=== PATIENT | female | born 1940 | race Caucasian/White ===

== ENCOUNTER 2017-06-04 09:15 | Emergency (ER) | payer MEDICARE, OTHER ==
[2017-06-04] MEDS ORDERED: HYDROmorphone 0.5 MG/0.5 ML Syringe IVPUSH ONE (09:29)
[2017-06-04] MEDS ORDERED: Sodium Chloride 0.9% 10 ML Syringe FLUSH PRN (09:38)
[2017-06-04] MEDS ORDERED: HYDROmorphone 1 MG/ML Syringe IVPUSH ONE (10:03)
--- NOTE | 2017-06-04 10:29 | EDM.PDOC ---
ED HPI GENERAL MEDICAL PROBLEM - General Chief Complaint: Trauma Stated Complaint: [facility] Time Seen by Provider: 06/04/17 09:35 Source of Information: Reports: Patient, EMS History Limitations: Reports: No Limitations - History of Present Illness INITIAL COMMENTS - FREE TEXT/NARRATIVE: The patient presents with right hip pain after a fall. The patient had a right hip replacement [address] Islas in [place]. She has been doing good until this morning. She was showering and shaving her legs and leaning over and she felt a pop and then she fell. She did not hit her head and she has no neck pain. She denies chest pain or abdominal pain. She has right hip pain. There is also an area where the incision has opened up and there was some bleeding. There is no bleeding now. She has good sensation and pulses distally. Onset: Sudden Duration: Minutes: Location: Reports: Lower Extremity, Right (Hip pain and incison has opened up) Quality: Reports: Sharp Severity: Severe Improves with: Reports: None Worsens with: Reports: Movement Context: Reports: Activity (She was showering and leaning over to shave her legs ) Associated Symptoms: Reports: No Other Symptoms Right Hip Pain Score (Numeric/FACES): 8 - Related Data Allergies Allergy/AdvReac Type Severity Reaction Status Date / Time azithromycin Allergy Hives Verified 06/04/17 09:24 [From Zithromax Z-Asael] clopidogrel [From Plavix] Allergy Hives Verified 06/04/17 09:24 ezetimibe [From Zetia] Allergy Hives Verified 06/04/17 09:24 hydrochlorothiazide Allergy Hives Verified 06/04/17 09:24 Iodinated Contrast- Oral and Allergy Hives Verified 06/04/17 09:24 IV Dye shellfish derived Allergy Hives Verified 06/04/17 09:24 simvastatin [From Vytorin] Allergy Hives Verified 06/04/17 09:24 Sulfa (Sulfonamide Allergy Hives Verified 06/04/17 09:24 Antibiotics) ticlopidine [From Ticlid] Allergy Hives Verified 06/04/17 09:24 contrast dye Allergy Hives Uncoded 06/04/17 09:24 salmon Allergy Hives Uncoded 06/04/17 09:24 Home Meds: Home Meds Aspirin [Ecotrin] 325 mg PO BID 06/04/17 [History] Cephalexin [Keflex] 500 mg PO Q6HR #28 cap 06/04/17 [Rx] Indapamide 2.5 mg PO DAILY 06/04/17 [History] Lisinopril [Lisinopril] 10 mg PO DAILY 06/04/17 [History] Metoprolol Tartrate 50 mg PO BID 06/04/17 [History] Nitroglycerin [Nitrostat] 0.4 mg PO ASDIRECTED PRN 06/04/17 [History] Simvastatin [Zocor] 40 mg PO BEDTIME 06/04/17 [History] Ubidecarenone [Co Q-10] 200 mg PO DAILY 06/04/17 [History] Past Medical History HEENT History: Reports: Cataract, Impaired Vision Other HEENT History: wears eyeglasses Cardiovascular History: Reports: High Cholesterol, Hypertension Genitourinary History: Reports: UTI, Recurrent 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 Social & Family History - Tobacco Use Smoking Status *Q: Never Smoker Second Hand Smoke Exposure: No - Caffeine Use Caffeine Use: Reports: Coffee - Recreational Drug Use Recreational Drug Use: No Review of Systems - Review of Systems Review Of Systems: See Below Constitutional: Reports: No Symptoms Eyes: Reports: No Symptoms Ears: Reports: No Symptoms Nose: Reports: No Symptoms Mouth/Throat: Reports: No Symptoms Respiratory: Reports: No Symptoms Cardiovascular: Reports: No Symptoms GI/Abdominal: Reports: No Symptoms Genitourinary: Reports: No Symptoms Musculoskeletal: Reports: Joint Pain (Right hip with the wound opening up) Skin: Reports: No Symptoms ED EXAM, GENERAL - Physical Exam Exam: See Below Exam Limited By: No Limitations General Appearance: Alert, No Apparent Distress Ears: Normal External Exam Nose: Normal Inspection Head: Atraumatic, Normocephalic Neck: Normal Inspection, Supple, Non-Tender, Full Range of Motion Respiratory/Chest: No Respiratory Distress, Lungs Clear, Normal Breath Sounds Cardiovascular: Regular Rate, Rhythm, No Edema, No Murmur GI/Abdominal: Soft, Non-Tender, No Organomegaly, No Mass Back Exam: Normal Inspection Extremities: Other (Right hip pain upon palpation. Her right leg is shortened but she has good sensation and pulses distally. She has a 2cm dehisense of the incision to the proximal aspect.) ED TRAUMA PROCEDURES - Laceration/Wound Repair Right Hip Lac/Wound Length In cm: 3 Appearance: Linear Distal NVT: Neuro & Vascular Intact Anesthetic Type: Other (Sedated for closed reduction) Skin Prep: Saline Exploration/Debridement/Repair: Wound Explored, In a Bloodless Field, Explored to Base Closed With: Howe (7) Tetanus Status Addressed: Yes Complications: No - Joint Reduction Site: Hip (R) Sedation: Conscious Cedation Pre-Procedure NV Status: Normal Post-Procedure NV Status: Normal Technique: Traction/Counter Traction Number of Attempts: 1 Post-Reduction Imaging: Completely Reduced Joint Reduction Complications: No EKG INTERPRETATION EKG Date: 06/04/17 Time: 10:51 Rhythm: Other (sinus bradycardia) Rate (Beats/Min): 50 [place]: Normal P-Wave: Present QRS: Normal ST-T: Normal QT: Normal Course - Vital Signs Last Recorded V/S: Last Vital Signs Temp 97.0 F 06/04/17 11:50 Pulse 52 L 06/04/17 11:50 Resp 18 06/04/17 11:50 BP 121/57 L 06/04/17 11:50 Pulse Ox 100 06/04/17 11:50 - Orders/Labs/Meds Orders: Active Orders 24 hr Category Date Time Status EKG Documentation Completion [RC] ASDIRECTED Care 06/04/17 10:48 Active Peripheral IV Care [RC] . DIRECTED Care 06/04/17 09:38 Active Hip Min 1V Rt [CR] Stat Exams 06/04/17 11:21 Taken Lactated Ringers [Ringers, Lactated] 1,000 ml Med 06/04/17 11:00 Active IV ASDIRECTED Sodium Chloride 0.9% [Saline Flush] Med 06/04/17 09:38 Active 10 ml FLUSH ASDIRECTED PRN Peripheral IV Insertion Adult [OM.PC] Routine Oth 06/04/17 09:38 Ordered EKG 12 Lead [EK] Stat Ther 06/04/17 10:48 Ordered Medication Orders Lactated Ringer's (Ringers, Lactated) 1,000 mls @ 100 mls/hr IV ASDIRECTED MADALYN Last Admin: 06/04/17 10:52 Dose: 100 mls/hr Sodium Chloride (Saline Flush) 10 ml FLUSH ASDIRECTED PRN PRN Reason: Keep Vein Open Last Admin: 06/04/17 09:25 Dose: 10 ml Meds: Medications Generic Name Dose Route Start Last Admin Trade Name Freq PRN Reason Stop Dose Admin Lactated Ringer's 1,000 mls @ 100 mls/hr 06/04/17 11:00 06/04/17 10:52 Ringers, Lactated IV 100 mls/hr ASDIRECTED MADALYN Administration Sodium Chloride 10 ml 06/04/17 09:38 06/04/17 09:25 Saline Flush FLUSH 10 ml ASDIRECTED PRN Administration Keep Vein Open Discontinued Medications Generic Name Dose Route Start Last Admin Trade Name Freq PRN Reason Stop Dose Admin Glycopyrrolate Confirm 06/04/17 11:42 Administered 06/04/17 11:43 Dose 1 mg .ROUTE .STK-MED ONE Hydromorphone HCl 0.5 mg 06/04/17 09:29 06/04/17 09:35 Dilaudid IVPUSH 06/04/17 09:30 0.5 mg ONETIME ONE Administration Hydromorphone HCl 1 mg 06/04/17 10:03 06/04/17 10:26 Dilaudid IVPUSH 06/04/17 10:04 1 mg ONETIME ONE Administration Cefazolin Sodium 2,000 mg/ 100 mls @ 100 mls/hr 06/04/17 10:37 06/04/17 11:42 Sodium Chloride IV 06/04/17 11:36 Not Given ONETIME ONE Cefazolin Sodium/Dextrose 2 gm 50 mls @ 100 mls/hr 06/04/17 10:40 06/04/17 10 :59 / Premix IV 06/04/17 11:09 100 mls/hr ONETIME ONE Administration Lactated Ringer's Confirm 06/04/17 10:52 06/04/17 11:46 Ringers, Lactated Administered 06/04/17 10:53 Not Given Dose 1,000 mls @ as directed .ROUTE .STK-MED ONE Ketamine HCl Confirm 06/04/17 10:59 Ketalar Administered 06/04/17 11:00 Dose 500 mg .ROUTE .STK-MED ONE Metoclopramide HCl 10 mg 06/04/17 10:48 06/04/17 10:54 Reglan IVPUSH 06/04/17 10:49 10 mg ONETIME ONE Administration Metoclopramide HCl Confirm 06/04/17 10:52 06/04/17 11:44 Reglan Administered 06/04/17 10:53 Not Given Dose 10 mg .ROUTE .STK-MED ONE Midazolam HCl Confirm 06/04/17 10:59 Versed 1 Mg/Ml Administered 06/04/17 11:00 Dose 2 mg .ROUTE .STK-MED ONE - Re-Assessments/Exams Free Text/Narrative Re-Assessment/Exam: 06/04/17 10:34 I ordered an IV saline lock and dilaudid 0.5mg IV for pain. Her x-ray confirmed a dislocation of her right prosthetic hip. I called Dr Corbett who is buttonhole facer for [facility] [place] and he recommended reducing her here, closing the wound with jose, giving her ancef 2 gram here and putting her on some keflex. Dr Islas is in clinic on Wednesday and he can see her. I have called the [employer]LLING M[employer]INE OPERATOR and they will come sedate the patient so I can reduce her hip. 06/04/17 10:38 06/04/17 11:17 When we moved her over to trauma room 1, her heart rate went down to the 30s. She rebounded into the 50s and I did an EKG and she had a sinus bradycardia with no acute changes. 06/04/17 11:19 Nilay our [employer] M[employer] OPERATOR sedated the patient and I reduced her dislocation without difficulty. I was able to irrigate the wound with about 100mls of sterile saline. I closed the wound with jose. I will get her a prescription for keflex. She will need to follow hip precautions. 06/04/17 12:34 We were able to get her in with Dr Islas on Wednesday at 2:20pm. Departure - Departure Time of Disposition: 13:00 Disposition: Home, Self-Care 01 Condition: Good Clinical Impression: Wound dehiscence Hip dislocation, right Qualifiers: Encounter type: initial encounter Qualified Code(s): S73.004A - Unspecified dislocation of right hip, initial encounter - Discharge Information Prescriptions: Cephalexin [Keflex] 500 mg PO Q6HR #28 cap Referrals: Dominguez Hardy MD [Primary Care Provider] - Forms: ED Department Discharge Additional Instructions: Use the hip precautions outlined by Dr Islas. Clean the wound with warm soapy water 2 times per day and apply antibiotic ointment after. Take tylenol or motrin for pain. Follow up with Dr Islas Wednesday at 2:20pm [place] time. Please return if you are worse. - My Orders Last 24 Hours: My Active Orders 06/04/17 09:38 Peripheral IV Care [RC] . DIRECTED Sodium Chloride 0.9% [Saline Flush] 10 ml FLUSH ASDIRECTED PRN Peripheral IV Insertion Adult [OM.PC] Routine 06/04/17 10:48 EKG Documentation Completion [RC] ASDIRECTED EKG 12 Lead [EK] Stat 06/04/17 11:00 Lactated Ringers [Ringers, Lactated] 1,000 ml IV ASDIRECTED 06/04/17 11:21 Hip Min 1V Rt [CR] Stat - Assessment/Plan Last 24 Hours: My Active Orders 06/04/17 09:38 Peripheral IV Care [RC] . DIRECTED Sodium Chloride 0.9% [Saline Flush] 10 ml FLUSH ASDIRECTED PRN Peripheral IV Insertion Adult [OM.PC] Routine 06/04/17 10:48 EKG Documentation Completion [RC] ASDIRECTED EKG 12 Lead [EK] Stat 06/04/17 11:00 Lactated Ringers [Ringers, Lactated] 1,000 ml IV ASDIRECTED 06/04/17 11:21 Hip Min 1V Rt [CR] Stat
--- NOTE | 2017-06-04 10:32 | CR ---
Right hip and pelvis: AP view of the pelvis was obtained as well as AP and lateral views of the right hip. Comparison: No prior pelvis or hip exam. Right hip prosthesis is seen. Dislocation is seen of the prosthesis with the femoral component being dislocated superiorly in relation to the acetabular cup. Bony structures are osteopenic. No acute bony abnormality is noted. Degenerative change is noted within the right sacroiliac joint. Vascular calcification is seen. Impression: 1. 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 2. Other findings which are felt to be incidental as described above. Diagnostic code #3
[2017-06-04] MEDS ORDERED: ceFAZolin 2 GM in Premix Bag 1 BAG IV ONE (10:40)
--- NOTE | 2017-06-04 10:42 | PCM.PREANE ---
Preanesthetic Assessment - Procedure Proposed Procedure: Closed reduction right hip - Anesthesia/Transfusion/Family Hx Anesthesia History: Prior Anesthesia Without Reaction Family History of Anesthesia Reaction: No Transfusion History: No Prior Transfusion(s) - Review of Systems General: No Symptoms Pulmonary: No Symptoms Cardiovascular: Other (HTN, HLD, cardiac stents x4) Gastrointestinal: Other (Occ GERD ) Neurological: No Symptoms Other: Reports: None - Physical Assessment NPO Status Date: 06/04/17 (cereal at 0730) NPO Status Time: 07:30 O2 Sat by Pulse Oximetry: 100 Respiratory Rate: 15 Vital Signs: Last Vital Signs Temp 36.3 C 06/04/17 09:15 Pulse 66 06/04/17 09:15 Resp 15 06/04/17 09:15 BP 153/60 H 06/04/17 09:15 Pulse Ox 100 06/04/17 09:15 Height: 1.63 m Weight: 80.739 kg ASA Class: 3E Mental Status: Alert & Oriented x3 Dentition: Reports: Dentures (upper and lower ) Thyro-Mental Finger Breadths: 3 Mouth Opening Finger Breadths: 3 ROM/Head Extension: Full Lungs: Clear to Auscultation, Normal Respiratory Effort Cardiovascular: Regular Rate, Regular Rhythm, Other (heart murmer- patient is aware of this and had an echo last april and was told by 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 geophysical prospecting that the "murmer was part of aging") - Allergies Allergies/Adverse Reactions: Allergies Allergy/AdvReac Type Severity Reaction Status Date / Time azithromycin Allergy Hives Verified 06/04/17 09:24 [From Zithromax Z-Asael] clopidogrel [From Plavix] Allergy Hives Verified 06/04/17 09:24 ezetimibe [From Zetia] Allergy Hives Verified 06/04/17 09:24 hydrochlorothiazide Allergy Hives Verified 06/04/17 09:24 Iodinated Contrast- Oral and Allergy Hives Verified 06/04/17 09:24 IV Dye shellfish derived Allergy Hives Verified 06/04/17 09:24 simvastatin [From Vytorin] Allergy Hives Verified 06/04/17 09:24 Sulfa (Sulfonamide Allergy Hives Verified 06/04/17 09:24 Antibiotics) ticlopidine [From Ticlid] Allergy Hives Verified 06/04/17 09:24 contrast dye Allergy Hives Uncoded 06/04/17 09:24 salmon Allergy Hives Uncoded 06/04/17 09:24 - Blood Blood Available: No Product(s) Available: None - Anesthesia Plan Beta Ildefonso: Metoprolol Med Last Dose Date: 06/04/17 Med Last Dose Time: 08:00 - Acknowledgements Anesthesia Type Planned: MAC Pt an Appropriate Candidate for the Planned Anesthesia: Yes Alternatives and Risks of Anesthesia Discussed w Pt/Guardian: Yes Pt/Guardian Understands and Agrees with Anesthesia Plan: Yes PreAnesthesia Questionnaire HEENT History: Reports: Cataract, Impaired Vision Other HEENT History: wears eyeglasses Cardiovascular History: Reports: High Cholesterol, Hypertension Genitourinary History: Reports: UTI, Recurrent 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 - SUBSTANCE USE Smoking Status *Q: Never Smoker Second Hand Smoke Exposure: No Recreational Drug Use History: No - HOME MEDS Home Medications: Home Meds Aspirin [Ecotrin] 325 mg PO BID 06/04/17 [History] Indapamide 2.5 mg PO DAILY 06/04/17 [History] Lisinopril [Lisinopril] 10 mg PO DAILY 06/04/17 [History] Metoprolol Tartrate 50 mg PO BID 06/04/17 [History] Nitroglycerin [Nitrostat] 0.4 mg PO ASDIRECTED PRN 06/04/17 [History] Simvastatin [Zocor] 40 mg PO BEDTIME 06/04/17 [History] Ubidecarenone [Co Q-10] 200 mg PO DAILY 06/04/17 [History] - CURRENT (IN HOUSE) MEDS Current Meds: Current Medications Sodium Chloride (Saline Flush) 10 ml FLUSH ASDIRECTED PRN PRN Reason: Keep Vein Open Last Admin: 06/04/17 09:25 Dose: 10 ml Discontinued Medications Hydromorphone HCl (Dilaudid) 0.5 mg IVPUSH ONETIME ONE Stop: 06/04/17 09:30 Last Admin: 06/04/17 09:35 Dose: 0.5 mg Hydromorphone HCl (Dilaudid) 1 mg IVPUSH ONETIME ONE Stop: 06/04/17 10:04 Last Admin: 06/04/17 10:26 Dose: 1 mg
[2017-06-04] MEDS ORDERED: Metoclopramide 10 MG/2 ML SDV IVPUSH ONE (10:48)
[2017-06-04] MEDS ORDERED: Lactated Ringers 1,000 ML ONE (10:52)
[2017-06-04] MEDS ORDERED: Metoclopramide 10 MG/2 ML SDV ONE (10:52)
[2017-06-04] MEDS ORDERED: Midazolam 1 MG/ML 2 ML SDV ONE (10:59)
[2017-06-04] MEDS ORDERED: Ketamine 500 mg/10 ML MDV ONE (10:59)
[2017-06-04] MEDS ORDERED: Lactated Ringers 1,000 ML IV SCH (11:00)
[2017-06-04 13:19] VITALS: BP 113/52
--- NOTE | 2017-06-07 12:49 | CR ---
Right hip: AP view of the right hip was obtained. Comparison: Previous tudy of 06/04/17 (9:38 AM). Previous dislocation has been reduced. Right hip prosthesis appears normal in alignment. Underlying bony structures are intact. Impression: 1. Previous right hip dislocation has been reduced. Diagnostic code #1
== END 2017-06-04 13:05 | disposition home or self-care (01) ==
LOC: JD.ED 09:15 → SUPCPDRO 09:15 → JD.ED 13:05
DX: S73.004A Unspecified dislocation of right hip, initial encounter (principal); T81.33XA Disruption of traumatic injury wound repair, initial encounter; W19.XXXA Unspecified fall, initial encounter
CPT/HCPCS: 12001; 27252; 73501; 73502; 93005; 96361; 96365; 96375; 96376; 99285; J0690; J1170; J2250; J2765; J7050; J7120; 01200; 12002; 27266; 99284-25

== ENCOUNTER 2018-01-31 09:27 | Emergency (ER) | payer MEDICARE, OTHER ==
[2018-01-31 09:36] VITALS: BP 153/68
[2018-01-31] MEDS ORDERED: Nitroglycerin 2% Oint 1 GM UD Packet TOP ONE (09:49)
[2018-01-31] MEDS ORDERED: Sodium Chloride 0.9% 10 ML Syringe FLUSH PRN (09:49)
--- NOTE | 2018-01-31 11:43 | CR ---
Chest: Portable view of the chest was obtained. Comparison: Prior chest x-ray of 03/21/11. Heart size and mediastinum are normal. Lungs are clear. Bony structures are grossly intact. Impression: 1. Nothing acute is seen on portable chest x-ray. Diagnostic code #1
--- NOTE | 2018-01-31 11:58 | EDM.PDOC ---
ED HPI GENERAL MEDICAL PROBLEM - General Chief Complaint: Chest Pain Stated Complaint: CHEST PAIN Time Seen by Provider: 01/31/18 09:40 Source of Information: Reports: Patient, RN Notes Reviewed - History of Present Illness INITIAL COMMENTS - FREE TEXT/NARRATIVE: 77-year-old female awakened with a brief episode of chest pain around 3:00 this past morning, around 7 hours ago. She went back to sleep without difficulty but then after awakening 3-4 hours later, starting to do some light activity around the house she had recurrence of anterior chest discomfort. States this was an achy heaviness type of discomfort with some radiation to her left shoulder and also to the base of her neck on the left. She sat down to rest, took a nitroglycerin and the pain went away she's had no further chest discomfort. There's been no nausea vomiting or diaphoresis. She does Have history of 3 stents placed in the neighborhood of 10-12 years ago. She is not been having other recent episodes of chest discomfort. His not been ill in any other way. She is on medication for hypertension and her heart. She does not smoke. She is on aspirin 325 mg daily, is not on Plavix, states she is allergic to that. 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 Chest Pain Score (Numeric/FACES): 3 - Related Data Allergies Allergy/AdvReac Type Severity Reaction Status Date / Time azithromycin Allergy Hives Verified 01/31/18 09:30 [From Zithromax Z-Asael] clopidogrel [From Plavix] Allergy Hives Verified 01/31/18 09:30 ezetimibe [From Zetia] Allergy Hives Verified 01/31/18 09:30 hydrochlorothiazide Allergy Hives Verified 01/31/18 09:30 Iodinated Contrast- Oral and Allergy Hives Verified 01/31/18 09:30 IV Dye shellfish derived Allergy Hives Verified 01/31/18 09:30 simvastatin [From Vytorin] Allergy Hives Verified 01/31/18 09:30 Sulfa (Sulfonamide Allergy Hives Verified 01/31/18 09:30 Antibiotics) ticlopidine [From Ticlid] Allergy Hives Verified 01/31/18 09:30 contrast dye Allergy Hives Uncoded 01/31/18 09:30 salmon Allergy Hives Uncoded 01/31/18 09:30 Home Meds: Home Meds Aspirin [Ecotrin] 325 mg PO DAILY 06/04/17 [History] Indapamide 2.5 mg PO DAILY 06/04/17 [History] Lisinopril 10 mg PO BID 06/04/17 [History] Metoprolol Tartrate 50 mg PO BID 06/04/17 [History] Nitroglycerin [Nitrostat] 0.4 mg PO ASDIRECTED PRN 06/04/17 [History] Simvastatin [Zocor] 40 mg PO BEDTIME 06/04/17 [History] Ubidecarenone [Co Q-10] 200 mg PO DAILY 06/04/17 [History] Isosorbide Mononitrate [Imdur] 60 mg PO BID 01/31/18 [History] Past Medical History HEENT History: Reports: Cataract, Impaired Vision Other HEENT History: wears eyeglasses Cardiovascular History: Reports: High Cholesterol, Hypertension Genitourinary History: Reports: UTI, Recurrent 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 Social & Family History - Tobacco Use Smoking Status *Q: Never Smoker - Caffeine Use Caffeine Use: Reports: Coffee ED ROS GENERAL - Review of Systems Review Of Systems: See Below Constitutional: Denies: Fever, Chills, Diaphoresis HEENT: Denies: Sinus Problem, Throat Pain Respiratory: Denies: Shortness of Breath, Pleuritic Chest Pain, Cough Cardiovascular: Reports: Chest Pain. Denies: Lightheadedness, Palpitations GI/Abdominal: Denies: Abdominal Pain, Nausea, Vomiting Musculoskeletal: Reports: Neck Pain, Shoulder Pain. Denies: Arm Pain, Back Pain Skin: Reports: No Symptoms Neurological: Reports: No Symptoms ED EXAM, GENERAL - Physical Exam Exam: See Below General Appearance: Alert, No Apparent Distress Eye Exam: Bilateral Eye: PERRL Throat/Mouth: Normal Inspection Head: Atraumatic. No: Facial Swelling Neck: Supple, Full Range of Motion Respiratory/Chest: No Respiratory Distress, Lungs Clear, Normal Breath Sounds Cardiovascular: Regular Rate, Rhythm GI/Abdominal: Soft, Non-Tender Extremities: Normal Inspection, Normal Range of Motion. No: Pedal Edema, Leg Pain Neurological: Alert, Oriented, No Motor/Sensory Deficits Skin Exam: Warm, Dry, Normal Color EKG INTERPRETATION EKG Date: 01/31/18 Rhythm: NSR Rate (Beats/Min): 60 [place]: Normal P-Wave: Present QRS: Normal ST-T: Other (T-wave lead II slightly inverted, no ST elevation or depression) Course - Vital Signs Last Recorded V/S: Last Vital Signs Temp 97.7 F 01/31/18 09:30 Pulse 64 01/31/18 09:30 Resp 21 H 01/31/18 09:30 BP 153/68 H 01/31/18 09:30 Pulse Ox 95 01/31/18 09:30 - Orders/Labs/Meds Orders: Active Orders 24 hr Category Date Time Status EKG 12 Lead [EKG Documentation Completion] [RC] STAT Care 01/31/18 09:48 Active Peripheral IV Care [RC] . DIRECTED Care 01/31/18 09:49 Active Sodium Chloride 0.9% [Saline Flush] Med 01/31/18 09:49 Active 10 ml FLUSH ASDIRECTED PRN Peripheral IV Insertion Adult [OM.PC] Stat Oth 01/31/18 09:49 Ordered Medication Orders Sodium Chloride (Saline Flush) 10 ml FLUSH ASDIRECTED PRN PRN Reason: Keep Vein Open Last Admin: 01/31/18 10:00 Dose: 10 ml Labs: Laboratory Tests 01/31/18 01/31/18 01/31/18 Range/Units 10:07 10:07 12:57 WBC 8.88 (3.98-10.04) K/mm3 RBC 4.37 (3.98-5.22) M/mm3 Hgb 12.1 (11.2-15.7) gm/L Hct 38.3 (34.1-44.9) % MCV 87.6 (79.4-94.8) fl MCH 27.7 (25.6-32.2) pg MCHC 31.6 L (32.2-35.5) g/dl RDW Std Deviation 50.3 H (36.4-46.3) fL Plt Count 279 (182-369) K/mm3 MPV 10.5 (9.4-12.3) fl Neut % (Auto) 67.0 (34.0-71.1) % Lymph % (Auto) 23.2 (19.3-51.7) % [place] % (Auto) 7.3 (4.7-12.5) % Eos % (Auto) 1.9 (0.7-5.8) Baso % (Auto) 0.3 (0.1-1.2) % Neut # (Auto) 5.94 (1.56-6.13) K/mm3 Lymph # (Auto) 2.06 (1.18-3.74) K/mm3 [place] # (Auto) 0.65 H (0.24-0.36) K/mm3 Eos # (Auto) 0.17 (0.04-0.36) K/mm3 Baso # (Auto) 0.03 (0.01-0.08) K/mm3 Sodium 137 (136-145) mEq/L Potassium 4.6 (3.5-5.1) mEq/L Chloride 102 (98-107) mEq/L Carbon Dioxide 29 (21-32) mEq/L Anion Gap 10.6 (5-15) BUN 17 (7-18) mg/dL Creatinine 1.1 H (0.55-1.02) mg/dL Est Cr Clr Drug Dosing 38.54 mL/min Estimated GFR (MDRD) 48 (>60) mL/min BUN/Creatinine Ratio 15.5 (14-18) Glucose 117 H (83-115) mg/dL Calcium 10.6 H (8.5-10.1) mg/dL Total Bilirubin 0.4 (0.2-1.0) mg/dL AST 25 (15-37) U/L ALT 31 (14-59) U/L Alkaline Phosphatase 172 H (46-116) U/L Troponin I < 0.017 < 0.017 (0.00-0.056) ng/mL Total Protein 7.4 (6.4-8.2) g/dl Albumin 3.5 (3.4-5.0) g/dl Globulin 3.9 gm/dL Albumin/Globulin Ratio 0.9 L (1-2) Meds: Medications Generic Name Dose Route Start Last Admin Trade Name Dm PRN Reason Stop Dose Admin Sodium Chloride 10 ml 01/31/18 09:49 01/31/18 10:00 Saline Flush FLUSH 10 ml ASDIRECTED PRN Administration Keep Vein Open Discontinued Medications Generic Name Dose Route Start Last Admin Trade Name Dm PRN Reason Stop Dose Admin Nitroglycerin 1 gm 01/31/18 09:49 01/31/18 09:59 Nitro-Bid 2% TOP 01/31/18 09:50 1 gm ONETIME ONE Administration - Re-Assessments/Exams Free Text/Narrative Re-Assessment/Exam: 01/31/18 15:13 Initial troponins came back normal. Other labs all relatively normal, chest x- ray was good. I did do a 3 hour troponin on her as well which also came back normal. She is maintained in sinus rhythm, no ectopy. I did give the option of setting her up for cardiac stress test versus have her follow-up with her normal regular provider for consideration of further workup as appropriate. They choose to follow-up with as soon as possible, discharge instructions as documented. Departure - Departure Time of Disposition: 14:26 Disposition: Home, Self-Care 01 Condition: Fair Clinical Impression: Atypical chest pain Instructions: Nonspecific Chest Pain, [id number] Referrals: Dominguez Hardy MD [Primary Care Provider] - Forms: ED Department Discharge Additional Instructions: Rest, continue current medications, follow-up with Dr. Hardy in the next 1-3 days if possible, call tomorrow morning for next available appointment, return to ED as needed if symptoms worsening in any way as discussed. - My Orders Last 24 Hours: My Active Orders 01/31/18 09:48 EKG 12 Lead [EKG Documentation Completion] [RC] STAT 01/31/18 09:49 Peripheral IV Care [RC] . DIRECTED Sodium Chloride 0.9% [Saline Flush] 10 ml FLUSH ASDIRECTED PRN Peripheral IV Insertion Adult [OM.PC] Stat - Assessment/Plan Last 24 Hours: My Active Orders 01/31/18 09:48 EKG 12 Lead [EKG Documentation Completion] [RC] STAT 01/31/18 09:49 Peripheral IV Care [RC] . DIRECTED Sodium Chloride 0.9% [Saline Flush] 10 ml FLUSH ASDIRECTED PRN Peripheral IV Insertion Adult [OM.PC] Stat
== END 2018-01-31 14:35 | disposition home or self-care (01) ==
LOC: JD.ED 09:27
DX: R07.89 Other chest pain (principal); I10 Essential (primary) hypertension; E78.00 Pure hypercholesterolemia, unspecified; Z79.82 Long term (current) use of aspirin; Z79.899 Other long term (current) drug therapy; Z88.2 Allergy status to sulfonamides; Z91.041 Radiographic dye allergy status; Z91.018 Allergy to other foods; Z88.8 Allergy status to other drugs, medicaments and biological substances; Z88.1 Allergy status to other antibiotic agents; Z91.013 Allergy to seafood
CPT/HCPCS: 36415; 71045; 80053; 84484; 85025; 93005; 99285; A9270; J7050; 93010; 99284

== ENCOUNTER 2020-12-21 13:22 | Emergency (ER) | payer MEDICARE, BC ==
[2020-12-21] MEDS ORDERED: Sodium Chloride 0.9% 10 ML Syringe FLUSH PRN (13:39)
--- NOTE | 2020-12-21 14:11 | EDM.PDOC ---
ED HPI GENERAL MEDICAL PROBLEM - General Chief Complaint: Cardiovascular Problem Stated Complaint: chest pains Time Seen by Provider: 12/21/20 13:24 Source of Information: Reports: Patient History Limitations: Reports: No Limitations - History of Present Illness INITIAL COMMENTS - FREE TEXT/NARRATIVE: The patient presents with chest pain. She said this started about 9:30am. She has some nausea with it. The pain is also in her left shoulder. She has no shortness of breath wit it. She says it is better now. She has no fever, chills, cough, congestion, runny nose, or abdominal pain. She had a cardiac stent placed back in 2005 and she has had no trouble with her heart since. She does have hypertension and she is on metoprolol and lisinopril for that. She did take aspirin this morning. Onset: Gradual Duration: Hour(s): Location: Reports: Chest Quality: Reports: Ache Severity: Mild Improves with: Reports: None Worsens with: Reports: None Associated Symptoms: Reports: Chest Pain, Nausea/Vomiting. Denies: Cough, Fever/Chills, Headaches, Shortness of Breath Chest Pain Score (Numeric/FACES): 7 - Related Data Allergies Allergy/AdvReac Type Severity Reaction Status Date / Time azithromycin Allergy Severe Hives Verified 12/21/20 14:05 [From Zithromax Z-Asael] clopidogrel [From Plavix] Allergy Severe Hives Verified 12/21/20 14:05 ezetimibe [From Zetia] Allergy Severe Hives Verified 12/21/20 14:05 hydrochlorothiazide Allergy Severe Hives Verified 12/21/20 14:05 Iodinated Contrast Media Allergy Severe Hives Verified 12/21/20 14:05 [Iodinated Contrast- Oral and IV Dye] shellfish derived Allergy Severe Hives Verified 12/21/20 14:05 simvastatin [From Vytorin] Allergy Severe Hives Verified 12/21/20 14:05 Sulfa (Sulfonamide Allergy Severe Hives Verified 12/21/20 14:05 Antibiotics) ticlopidine [From Ticlid] Allergy Severe Hives Verified 12/21/20 14:05 contrast dye Allergy Severe Hives Uncoded 12/21/20 14:05 salmon Allergy Hives Uncoded 12/21/20 14:05 Home Meds: Home Meds Indapamide 2.5 mg PO DAILY 06/04/17 [History] Lisinopril 10 mg PO BID 06/04/17 [History] Metoprolol Tartrate 50 mg PO BID 06/04/17 [History] Nitroglycerin [Nitrostat] 0.4 mg PO ASDIRECTED PRN 06/04/17 [History] Simvastatin [Zocor] 40 mg PO BEDTIME 06/04/17 [History] Ubidecarenone [Co Q-10] 200 mg PO DAILY 06/04/17 [History] Aspirin [Halfprin] 81 mg PO DAILY 12/21/20 [History] Vit A/Vit C/Vit E/Zinc/Copper [Icaps Areds Formula] 1 tab PO DAILY 12/21/20 [History] Past Medical History HEENT History: Reports: Cataract, Impaired Vision Other HEENT History: wears eyeglasses Cardiovascular History: Reports: High Cholesterol, Hypertension Genitourinary History: Reports: UTI, Recurrent 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 Social & Family History - Tobacco Use Tobacco Use Status *Q: Never Tobacco User Second Hand Smoke Exposure: No - Caffeine Use Caffeine Use: Reports: Coffee - Recreational Drug Use Recreational Drug Use: No ED ROS GENERAL - Review of Systems Review Of Systems: See Below Constitutional: Reports: No Symptoms HEENT: Reports: No Symptoms Respiratory: Reports: No Symptoms Cardiovascular: Reports: Chest Pain Endocrine: Reports: No Symptoms GI/Abdominal: Reports: Nausea. Denies: Abdominal Pain, Vomiting ED EXAM, GENERAL - Physical Exam Exam: See Below Exam Limited By: No Limitations General Appearance: Alert, No Apparent Distress Ears: Normal External Exam Nose: Normal Inspection Head: Atraumatic, Normocephalic Neck: Normal Inspection Respiratory/Chest: No Respiratory Distress, Lungs Clear, Normal Breath Sounds Cardiovascular: Regular Rate, Rhythm, No Edema, No Murmur GI/Abdominal: Soft, Non-Tender, No Organomegaly, No Mass Extremities: Normal Inspection #1 Interpretation EKG Date: 12/21/20 Time: 13:27 Rhythm: NSR Rate (Beats/Min): 61 [place]: Normal P-Wave: Present QRS: Normal ST-T: Normal QT: Normal Course - Vital Signs Last Recorded V/S: Last Vital Signs Temp 97.5 F 12/21/20 13:31 Pulse 51 L 12/21/20 15:26 Resp 16 12/21/20 15:26 BP 147/62 H 12/21/20 15:26 Pulse Ox 95 12/21/20 15:26 - Orders/Labs/Meds Orders: Active Orders 24 hr Category Date Time Status Cardiac Monitoring [RC] . DIRECTED Care 12/21/20 13:39 Active EKG Documentation Completion [RC] STAT Care 12/21/20 13:40 Active Peripheral IV Care [RC] . DIRECTED Care 12/21/20 13:40 Active Chest 1V Frontal [CR] Stat Exams 12/21/20 13:40 Taken Sodium Chloride 0.9% [Saline Flush] Med 12/21/20 13:39 Active 10 ml FLUSH ASDIRECTED PRN Peripheral IV Insertion Adult [OM.PC] Stat Oth 12/21/20 13:39 Ordered Medication Orders Sodium Chloride (Sodium Chloride 0.9% 10 Ml Syringe) 10 ml FLUSH ASDIRECTED PRN PRN Reason: Keep Vein Open Last Admin: 12/21/20 13:48 Dose: 10 ml Documented by: BIANCA Labs: Laboratory Tests 12/21/20 12/21/20 Range/Units 13:30 13:30 WBC 13.25 H (3.98-10.04) K/mm3 RBC 4.76 (3.98-5.22) M/mm3 Hgb 13.6 D (11.2-15.7) gm/dl Hct 42.4 (34.1-44.9) % MCV 89.1 (79.4-94.8) fl MCH 28.6 (25.6-32.2) pg MCHC 32.1 L (32.2-35.5) g/dl RDW Std Deviation 48.7 H (36.4-46.3) fL Plt Count 318 (182-369) K/mm3 MPV 10.5 (9.4-12.3) fl Neut % (Auto) 68.2 (34.0-71.1) % Lymph % (Auto) 22.0 (19.3-51.7) % [place] % (Auto) 8.2 (4.7-12.5) % Eos % (Auto) 0.9 (0.7-5.8) Baso % (Auto) 0.4 (0.1-1.2) % Neut # (Auto) 9.04 H (1.56-6.13) K/mm3 Lymph # (Auto) 2.91 (1.18-3.74) K/mm3 [place] # (Auto) 1.09 H (0.24-0.36) K/mm3 Eos # (Auto) 0.12 (0.04-0.36) K/mm3 Baso # (Auto) 0.05 (0.01-0.08) K/mm3 Manual Slide Review Normal smear Sodium 139 (136-145) mEq/L Potassium 3.9 (3.5-5.1) mEq/L Chloride 100 (98-107) mEq/L Carbon Dioxide 29 (21-32) mEq/L Anion Gap 13.9 (5-15) BUN 18 (7-18) mg/dL Creatinine 1.1 H (0.55-1.02) mg/dL Est Cr Clr Drug Dosing 36.70 mL/min Estimated GFR (MDRD) 48 (>60) mL/min BUN/Creatinine Ratio 16.4 (14-18) Glucose 101 (83-115) mg/dL Calcium 9.5 (8.5-10.1) mg/dL Total Bilirubin 0.5 (0.2-1.0) mg/dL AST 23 (15-37) U/L ALT 35 (14-59) U/L Alkaline Phosphatase 181 H (46-116) U/L Troponin I < 0.017 (0.00-0.056) ng/mL Total Protein 8.2 (6.4-8.2) g/dl Albumin 4.0 (3.4-5.0) g/dl Globulin 4.2 gm/dL Albumin/Globulin Ratio 1.0 (1-2) Meds: Medications Generic Name Dose Route Start Last Admin Trade Name Freq PRN Reason Stop Dose Admin Sodium Chloride 10 ml 12/21/20 13:39 12/21/20 13:48 Sodium Chloride 0.9% 10 Ml Syringe FLUSH 10 ml ASDIRECTED PRN Administration Keep Vein Open - Re-Assessments/Exams Free Text/Narrative Re-Assessment/Exam: 12/21/20 14:11 I ordered an IV saline lock, EKG, CXR and labs. Her EKG shows a NSR with no acute changes. 12/21/20 15:51 Her CXR looks good. Her WBC was elevated at 13.25. Her creatinine is elevated at 1.1. Alk phos is elevated at 181. Her troponin is negative. She feels better. I will discharge her home. Departure - Departure Time of Disposition: 16:00 Disposition: Home, Self-Care 01 Condition: Good Clinical Impression: Atypical chest pain Referrals: Dominguez Hardy MD [Primary Care Provider] - 1 Week Forms: ED Department Discharge Additional Instructions: Take your medications as prescribed. Please return if you are worse. Follow up with Dr Hardy this week. Sepsis Event Note (ED) - Evaluation Sepsis Screening Result: No Definite Risk - Focused Exam Vital Signs: Vital Signs Temp Pulse Resp BP Pulse Ox 12/21/20 15:26 51 L 16 147/62 H 95 12/21/20 13:31 97.5 F 53 L 18 167/73 H 100 - My Orders Last 24 Hours: My Active Orders 12/21/20 13:39 Cardiac Monitoring [RC] . DIRECTED Sodium Chloride 0.9% [Saline Flush] 10 ml FLUSH ASDIRECTED PRN Peripheral IV Insertion Adult [OM.PC] Stat 12/21/20 13:40 EKG Documentation Completion [RC] STAT Peripheral IV Care [RC] . DIRECTED Chest 1V Frontal [CR] Stat - Assessment/Plan Last 24 Hours: My Active Orders 12/21/20 13:39 Cardiac Monitoring [RC] . DIRECTED Sodium Chloride 0.9% [Saline Flush] 10 ml FLUSH ASDIRECTED PRN Peripheral IV Insertion Adult [OM.PC] Stat 12/21/20 13:40 EKG Documentation Completion [RC] STAT Peripheral IV Care [RC] . DIRECTED Chest 1V Frontal [CR] Stat
[2020-12-21 15:27] VITALS: PULSE 51
[2020-12-21 16:07] VITALS: BP 165/64
--- NOTE | 2020-12-22 09:22 | CR ---
Chest: Portable view of the chest was obtained. Comparison: Prior chest x-ray of 01/31/18. Heart size and mediastinum are normal. Lungs are clear with no acute parenchymal change. No acute osseous finding is seen. Impression: 1. Nothing acute is appreciated on portable chest x-ray. Diagnostic code #1
== END 2020-12-21 16:00 | disposition home or self-care (01) ==
LOC: JD.ED 13:22
DX: R07.89 Other chest pain (principal); E78.00 Pure hypercholesterolemia, unspecified; I10 Essential (primary) hypertension; Z79.82 Long term (current) use of aspirin; Z86.16 Personal history of COVID-19; Z95.5 Presence of coronary angioplasty implant and graft; Z79.899 Other long term (current) drug therapy; Z91.041 Radiographic dye allergy status; Z88.2 Allergy status to sulfonamides; Z88.1 Allergy status to other antibiotic agents; Z88.8 Allergy status to other drugs, medicaments and biological substances; Z91.013 Allergy to seafood
CPT/HCPCS: 36415; 71045; 71045-26; 80053; 84484; 85025; 93005; 93010; 99284; 99285-25

== ENCOUNTER 2022-07-19 13:14 | Emergency (ER) | payer MEDICARE, BC ==
[2022-07-19] MEDS ORDERED: LORazepam 2 MG/ML SDV IV ONE (14:29)
[2022-07-19] MEDS ORDERED: Metoclopramide 10 MG/2 ML SDV IVPUSH ONE (14:29)
[2022-07-19] MEDS ORDERED: Dextrose 5%-Lactated Ringers 1,000 ML IV SCH (14:30)
[2022-07-19 17:16] VITALS: BP 168/63; PULSE 56
== END 2022-07-19 17:40 | disposition home or self-care (01) ==
LOC: JD.ED 13:14
DX: E87.1 Hypo-osmolality and hyponatremia (principal); E78.00 Pure hypercholesterolemia, unspecified; I10 Essential (primary) hypertension; M19.90 Unspecified osteoarthritis, unspecified site; I44.0 Atrioventricular block, first degree; Z88.8 Allergy status to other drugs, medicaments and biological substances; Z88.1 Allergy status to other antibiotic agents; Z91.041 Radiographic dye allergy status; Z91.018 Allergy to other foods; Z91.013 Allergy to seafood; Z88.2 Allergy status to sulfonamides; Z79.82 Long term (current) use of aspirin; Z79.899 Other long term (current) drug therapy
CPT/HCPCS: 36415; 80053; 81001; 82553; 83735; 83880; 83930; 84484; 85025; 86140; 93005; 96361; 96374; 96375; 99284; J2060; J2765; J7121

== ENCOUNTER 2023-01-10 11:37 | Emergency (ER) | payer MEDICARE, BC ==
[2023-01-10 11:47] VITALS: BP 170/70; PULSE 68
[2023-01-10] MEDS ORDERED: Sodium Chloride 0.9% 10 ML Syringe FLUSH PRN (12:08)
[2023-01-10] MEDS ORDERED: Sodium Chloride 0.9% 500 ML IV ONE (12:19)
[2023-01-10] MEDS ORDERED: Ondansetron 4 MG/2 ML SDV IVPUSH ONE (12:19)
[2023-01-10 13:07] LABS: BASOPHILS ABSOLUTE AUTO 0.03 K/mm3 (0.01-0.08); BASOPHILS PERCENT AUTO 0.3 % (0.1-1.2); EOSINOPHILS ABSOLUTE AUTO 0.07 K/mm3 (0.04-0.36); EOSINOPHILS PERCENT AUTO 0.7 (0.7-5.8); HEMATOCRIT 40.8 % (34.1-44.9); HEMOGLOBIN 13.6 gm/dl (11.2-15.7); IMMATURE GRAN ABSOLUTE AUTO 0.01 K/mm3 (0.00-0.10); IMMATURE GRAN PERCENT AUTO 0.1 % (<=1.0); LYMPHOCYTES ABSOLUTE AUTO 1.85 K/mm3 (1.18-3.74); LYMPHOCYTES PERCENT AUTO 17.5 % (19.3-51.7); MEAN CORPUSCULAR HEMOGLOBIN 28.4 pg (25.6-32.2); MEAN CORPUSCULAR HGB CONC 33.3 g/dl (32.2-35.5); MEAN CORPUSCULAR VOLUME 85.2 fl (79.4-94.8); MONOCYTES ABSOLUTE AUTO 0.87 K/mm3 (0.24-0.36); MONOCYTES PERCENT AUTO 8.2 % (4.7-12.5); NEUTROPHILS ABSOLUTE AUTO 7.73 K/mm3 (1.56-6.13); NEUTROPHILS PERCENT AUTO 73.2 % (34.0-71.1); PLATELET COUNT,PLT 301 K/mm3 (182-369); RED BLOOD CELL COUNT 4.79 M/mm3 (3.98-5.22); WHITE BLOOD CELL COUNT,WBC 10.56 K/mm3 (3.98-10.04)
[2023-01-10 13:28] LABS: LACTIC ACID 0.9 mmol/L (0.4-2.0)
[2023-01-10 13:29] LABS: A/G RATIO 0.8 (1-2); ALBUMIN 3.7 g/dl (3.4-5.0); ANION GAP 10.1 (5-15); BILIRUBIN TOTAL 0.8 mg/dL (0.2-1.0); BUN/CREATININE RATIO 15.6 (14-18); CREATININE 0.9 mg/dL (0.55-1.02); EST CRCL DRUG DOSING (CG) 43.37 mL/min; MAGNESIUM 1.8 mg/dL (1.8-2.4); POTASSIUM,K 4.1 mEq/L (3.5-5.1); PROTEIN TOTAL,TP 8.1 g/dl (6.4-8.2)
[2023-01-10 14:19] LABS: CORONAVIRUS COVID-19 NAA NEGATIVE (NEGATIVE); INFLUENZA A NAA NEGATIVE (NEGATIVE)
[2023-01-10 14:46] LABS: APPEARANCE,URINE CLEAR (Clear); BILIRUBIN,URINE NEGATIVE (Negative); COLOR,URINE YELLOW (Yellow); GLUCOSE,URINE NEGATIVE (Negative); KETONES,URINE TRACE (Negative); LEUKOCYTE ESTERASE,URINE 1+ (Negative); NITRITE,URINE NEGATIVE (Negative); OCCULT BLOOD,URINE NEGATIVE (Negative); PROTEIN,URINE NEGATIVE (Negative); UROBILINOGEN,URINE 0.2 (0.2-1.0)
[2023-01-10 15:00] LABS: AMORPHOUS SEDIMENT,URINE FEW /hpf (NOT SEEN); BACTERIA,URINE FEW /hpf (FEW); HYALINE CASTS,URINE 0-5 /lpf (0-5); MUCUS,URINE NOT SEEN /hpf (FEW); RBC,URINE 0-5 /hpf (0-5); SQUAMOUS EPITHELIAL CELLS,UR 0-5 /hpf (0-5); WBC,URINE 0-5 /hpf (0-5)
== END 2023-01-10 16:20 | disposition home or self-care (01) ==
LOC: JD.ED 11:37
DX: K52.9 Noninfective gastroenteritis and colitis, unspecified (principal); I10 Essential (primary) hypertension; E78.00 Pure hypercholesterolemia, unspecified; Z86.16 Personal history of COVID-19; Z88.1 Allergy status to other antibiotic agents; Z79.02 Long term (current) use of antithrombotics/antiplatelets; Z88.8 Allergy status to other drugs, medicaments and biological substances; Z88.2 Allergy status to sulfonamides; Z91.041 Radiographic dye allergy status; Z91.013 Allergy to seafood; Z79.899 Other long term (current) drug therapy; Z79.82 Long term (current) use of aspirin; Z20.822 Contact with and (suspected) exposure to COVID-19
CPT/HCPCS: 0240U; 36415; 71045; 74019; 80053; 81001; 83605; 83735; 84484; 85025; 86140; 87086; 93005; 96361; 96374; 99284; J2405; J3490; J7030; 93010

== ENCOUNTER 2023-02-06 10:06 | Emergency (ER) | payer MEDICARE, BC ==
[2023-02-06] MEDS ORDERED: Sodium Chloride 0.9% 10 ML Syringe FLUSH PRN (10:37)
[2023-02-06 11:07] LABS: BASOPHILS ABSOLUTE AUTO 0.03 K/mm3 (0.01-0.08); BASOPHILS PERCENT AUTO 0.3 % (0.1-1.2); EOSINOPHILS ABSOLUTE AUTO 0.05 K/mm3 (0.04-0.36); EOSINOPHILS PERCENT AUTO 0.5 (0.7-5.8); HEMATOCRIT 38.6 % (34.1-44.9); HEMOGLOBIN 12.6 gm/dl (11.2-15.7); IMMATURE GRAN ABSOLUTE AUTO 0.01 K/mm3 (0.00-0.10); IMMATURE GRAN PERCENT AUTO 0.1 % (<=1.0); LYMPHOCYTES ABSOLUTE AUTO 1.94 K/mm3 (1.18-3.74); LYMPHOCYTES PERCENT AUTO 17.6 % (19.3-51.7); MEAN CORPUSCULAR HEMOGLOBIN 27.9 pg (25.6-32.2); MEAN CORPUSCULAR HGB CONC 32.6 g/dl (32.2-35.5); MEAN CORPUSCULAR VOLUME 85.6 fl (79.4-94.8); MEAN PLATELET VOLUME 10.5 fl (9.4-12.3); MONOCYTES ABSOLUTE AUTO 1.24 K/mm3 (0.24-0.36); MONOCYTES PERCENT AUTO 11.2 % (4.7-12.5); NEUTROPHILS ABSOLUTE AUTO 7.76 K/mm3 (1.56-6.13); NEUTROPHILS PERCENT AUTO 70.3 % (34.0-71.1); PLATELET COUNT,PLT 332 K/mm3 (182-369); RED BLOOD CELL COUNT 4.51 M/mm3 (3.98-5.22); WHITE BLOOD CELL COUNT,WBC 11.03 K/mm3 (3.98-10.04)
[2023-02-06 11:17] LABS: INR 1.02; PROTHROMBIN TIME 10.9 SECONDS (9.7-12.0)
[2023-02-06 11:21] LABS: D-DIMER QUANTITATIVE 0.94 mg/L (0.19-0.50)
[2023-02-06 11:36] LABS: CORONAVIRUS COVID-19 NAA NEGATIVE (NEGATIVE); INFLUENZA A NAA NEGATIVE (NEGATIVE); RESPIRATORY SYNCYTIAL VIR NAA NEGATIVE (NEGATIVE)
[2023-02-06 11:38] LABS: A/G RATIO 0.9 (1-2); ALBUMIN 3.6 g/dl (3.4-5.0); ANION GAP 6.9 (5-15); BILIRUBIN TOTAL 0.8 mg/dL (0.2-1.0); BUN/CREATININE RATIO 8.2 (14-18); C-REACTIVE PROTEIN 2.9 mg/dL (<1.0); CREATININE 1.1 mg/dL (0.55-1.02); EST CRCL DRUG DOSING (CG) 35.48 mL/min; MAGNESIUM 1.9 mg/dL (1.8-2.4); POTASSIUM,K 3.9 mEq/L (3.5-5.1); PROTEIN TOTAL,TP 7.6 g/dl (6.4-8.2); TSH 0.566 uIU/mL (0.358-3.74)
[2023-02-06] MEDS ORDERED: Ondansetron 4 MG/2 ML SDV IVPUSH ONE (11:49)
[2023-02-06 12:01] LABS: APPEARANCE,URINE CLEAR (Clear); BILIRUBIN,URINE NEGATIVE (Negative); COLOR,URINE YELLOW (Yellow); GLUCOSE,URINE NEGATIVE (Negative); KETONES,URINE NEGATIVE (Negative); LEUKOCYTE ESTERASE,URINE TRACE (Negative); NITRITE,URINE NEGATIVE (Negative); OCCULT BLOOD,URINE NEGATIVE (Negative); PH,URINE 7.5 (5.0-8.0); PROTEIN,URINE NEGATIVE (Negative); UROBILINOGEN,URINE 0.2 (0.2-1.0)
[2023-02-06 12:25] LABS: BACTERIA,URINE FEW /hpf (FEW); MUCUS,URINE RARE /hpf (FEW); RBC,URINE 0-5 /hpf (0-5); SQUAMOUS EPITHELIAL CELLS,UR 0-5 /hpf (0-5); WBC,URINE 0-5 /hpf (0-5)
[2023-02-06 13:26] VITALS: BP 147/73; PULSE 62
== END 2023-02-06 13:26 | disposition home or self-care (01) ==
LOC: JD.ED 10:06
DX: K29.50 Unspecified chronic gastritis without bleeding (principal); R91.1 Solitary pulmonary nodule; R79.1 Abnormal coagulation profile; E78.00 Pure hypercholesterolemia, unspecified; I10 Essential (primary) hypertension; M19.90 Unspecified osteoarthritis, unspecified site; Z86.16 Personal history of COVID-19; Z88.8 Allergy status to other drugs, medicaments and biological substances; Z91.013 Allergy to seafood; Z91.041 Radiographic dye allergy status; Z88.2 Allergy status to sulfonamides; Z88.1 Allergy status to other antibiotic agents; Z79.82 Long term (current) use of aspirin; Z79.899 Other long term (current) drug therapy; Z20.822 Contact with and (suspected) exposure to COVID-19
CPT/HCPCS: 0241U; 36415; 71250; 74176; 80053; 81001; 82150; 82550; 83690; 83735; 83880; 84443; 84484; 85025; 85379; 85610; 85652; 85730; 86140; 87086; 93005; 96374; 99284; J2405; J3490

== ENCOUNTER 2023-06-01 14:43 | Emergency (ER) | payer MEDICARE, BC ==
[2023-06-01 15:40] LABS: BASOPHILS PERCENT AUTO 0.4 % (0.0-1.0); EOSINOPHILS ABSOLUTE AUTO 0.1 K/mm3 (0.0-0.4); EOSINOPHILS PERCENT AUTO 0.8 % (0.0-6.0); HEMOGLOBIN 12.2 gm/dl (12.0-16.0); IMMATURE GRAN ABSOLUTE AUTO 0.04 K/mm3 (0.00-0.05); IMMATURE GRAN PERCENT AUTO 0.4 % (0.0-0.4); LYMPHOCYTES ABSOLUTE AUTO 2.1 K/mm3 (1.0-4.8); LYMPHOCYTES PERCENT AUTO 20.4 % (24.0-44.0); MEAN CORPUSCULAR HEMOGLOBIN 28.2 pg (28.0-32.0); MEAN CORPUSCULAR HGB CONC 32.1 g/dl (32.0-36.0); MEAN PLATELET VOLUME 10.9 fl (9.4-12.3); MONOCYTES ABSOLUTE AUTO 0.8 K/mm3 (0.0-0.8); MONOCYTES PERCENT AUTO 8.4 % (0.0-8.0); NEUTROPHILS PERCENT AUTO 69.6 % (41.0-71.0); PLATELET COUNT,PLT 268 K/mm3 (150-400); RED BLOOD CELL COUNT 4.32 M/mm3 (4.10-5.30); WHITE BLOOD CELL COUNT,WBC 10.03 K/mm3 (3.9-11.3)
[2023-06-01] MEDS ORDERED: Metoprolol Tartrate 5 MG/5 ML SDV IVPUSH ONE (16:01)
[2023-06-01 16:19] LABS: APPEARANCE,URINE CLEAR (Clear); BILIRUBIN,URINE NEGATIVE (Negative); COLOR,URINE YELLOW (Yellow); GLUCOSE,URINE NEGATIVE (Negative); KETONES,URINE NEGATIVE (Negative); LEUKOCYTE ESTERASE,URINE TRACE (Negative); NITRITE,URINE NEGATIVE (Negative); OCCULT BLOOD,URINE 1+ (Negative); PH,URINE 6.5 (5.0-8.0); PROTEIN,URINE TRACE (Negative); UROBILINOGEN,URINE 0.2 (0.2-1.0)
[2023-06-01 16:27] LABS: A/G RATIO 0.9 (1-2); ALBUMIN 3.2 g/dl (3.4-5.0); ANION GAP 8.9 (5-15); BILIRUBIN TOTAL 0.4 mg/dL (0.2-1.0); CALCIUM 9.5 mg/dL (8.5-10.1); EST CRCL DRUG DOSING (CG) 39.03 mL/min; POTASSIUM,K 3.9 mEq/L (3.5-5.1); PROTEIN TOTAL,TP 6.8 g/dl (6.4-8.2)
[2023-06-01 16:32] LABS: BACTERIA,URINE FEW /hpf (FEW); MUCUS,URINE FEW /hpf (FEW); SQUAMOUS EPITHELIAL CELLS,UR 0-5 /hpf (0-5)
[2023-06-01] MEDS ORDERED: hydrALAZINE 20 MG/ML SDV IVPUSH ONE (16:45)
[2023-06-01] MEDS ORDERED: amLODIPine 5 MG Tab PO ONE (19:35)
[2023-06-01] MEDS ORDERED: Nitrofurantoin Monohydrate/Macrocrystalline 100 MG Cap PO ONE (19:35)
[2023-06-01 20:51] VITALS: BP 179/63
[2023-06-02 01:23] VITALS: PULSE 72
== END 2023-06-01 20:56 | disposition home or self-care (01) ==
LOC: JD.ED 14:43
DX: I10 Essential (primary) hypertension (principal); N39.0 Urinary tract infection, site not specified; E78.00 Pure hypercholesterolemia, unspecified; Z86.16 Personal history of COVID-19; Z88.1 Allergy status to other antibiotic agents; Z88.2 Allergy status to sulfonamides; Z88.5 Allergy status to narcotic agent; Z88.6 Allergy status to analgesic agent; Z88.8 Allergy status to other drugs, medicaments and biological substances; Z91.013 Allergy to seafood; Z91.041 Radiographic dye allergy status; Z79.899 Other long term (current) drug therapy
CPT/HCPCS: 36415; 80053; 81001; 84484; 85025; 87086; 93005; 96374; 99283; A9270; J0360

== ENCOUNTER 2024-11-28 15:46 | Emergency (ER) | payer BC, MEDICARE ==
[2024-11-28 17:40] VITALS: BP 147/52; PULSE 68
== END 2024-11-28 17:33 | disposition home or self-care (01) ==
LOC: JD.ED 15:46
DX: S01.511A Laceration without foreign body of lip, initial encounter (principal); I10 Essential (primary) hypertension; E78.00 Pure hypercholesterolemia, unspecified; M19.90 Unspecified osteoarthritis, unspecified site; Z88.8 Allergy status to other drugs, medicaments and biological substances; Z88.1 Allergy status to other antibiotic agents; Z91.041 Radiographic dye allergy status; Z88.2 Allergy status to sulfonamides; Z91.013 Allergy to seafood; Z79.899 Other long term (current) drug therapy; Z79.82 Long term (current) use of aspirin; Z86.16 Personal history of COVID-19; Z90.49 Acquired absence of other specified parts of digestive tract; Z90.710 Acquired absence of both cervix and uterus; W01.0XXA Fall on same level from slipping, tripping and stumbling without subsequent striking against object, initial encounter
CPT/HCPCS: 70450; 70450-26; 99282; 99283

== ENCOUNTER 2025-01-20 18:57 | Inpatient (IN) | payer MEDICARE ==
[2025-01-20] MEDS: Acetaminophen 325 MG Tab PO ONE (21:33)
[2025-01-21] MEDS: Amiodarone 200 MG Tab PO STA ×2 (00:10→05:42)
[2025-01-21] MEDS: Apixaban 5 MG Tab PO ONE ×2 (00:11→05:42)
[2025-01-21] MEDS: Sertraline 50 MG Tab PO ONE ×2 (00:11→05:43)
[2025-01-21] MEDS: amLODIPine 5 MG Tab PO ONE ×2 (00:11→05:42)
[2025-01-21] MEDS: Lisinopril 10 MG Tab PO ONE ×3 (00:27→05:43)
[2025-01-21 08:25] LABS: BASOPHILS ABSOLUTE AUTO 0.1 K/mm3 (0.0-0.2); BASOPHILS PERCENT AUTO 0.3 % (0.0-1.0); EOSINOPHILS PERCENT AUTO 0.1 % (0.0-6.0); HEMATOCRIT 23.3 % (37.0-47.0); IMMATURE GRAN ABSOLUTE AUTO 0.09 K/mm3 (0.00-0.05); IMMATURE GRAN PERCENT AUTO 0.6 % (0.0-0.4); LYMPHOCYTES ABSOLUTE AUTO 1.5 K/mm3 (1.0-4.8); LYMPHOCYTES PERCENT AUTO 9.5 % (24.0-44.0); MEAN CORPUSCULAR HEMOGLOBIN 20.7 pg (28.0-32.0); MEAN CORPUSCULAR HGB CONC 29.6 g/dl (32.0-36.0); MEAN CORPUSCULAR VOLUME 69.8 fl (83.0-99.0); MEAN PLATELET VOLUME 10.9 fl (9.4-12.3); MONOCYTES PERCENT AUTO 6.7 % (0.0-8.0); NEUTROPHILS ABSOLUTE AUTO 12.9 K/mm3 (1.8-7.7); NEUTROPHILS PERCENT AUTO 82.8 % (41.0-71.0); PLATELET COUNT,PLT 214 K/mm3 (150-400); RED BLOOD CELL COUNT 3.34 M/mm3 (4.10-5.30); WHITE BLOOD CELL COUNT,WBC 15.61 K/mm3 (3.9-11.3)
[2025-01-21 08:32] LABS: HEMOGLOBIN 6.9 gm/dl (12.0-16.0)
[2025-01-21 08:56] LABS: A/G RATIO 0.7 (1-2); ALBUMIN 2.6 g/dl (3.4-5.0); ANION GAP 11.2 (5-15); BILIRUBIN TOTAL 0.5 mg/dL (0.2-1.0); BUN/CREATININE RATIO 12.7 (14-18); CALCIUM 9.1 mg/dL (8.5-10.1); CREATININE 1.5 mg/dL (0.55-1.02); EST CRCL DRUG DOSING (CG) 24.11 mL/min; MAGNESIUM 1.8 mg/dL (1.8-2.4); POTASSIUM,K 4.2 mEq/L (3.5-5.1); PROTEIN TOTAL,TP 6.1 g/dl (6.4-8.2)
[2025-01-21 09:05] LABS: INR 1.09; PROTHROMBIN TIME 11.5 SECONDS (9.7-12.0)
[2025-01-21 09:20] LABS: SLIDE REVIEW ABNORMAL SMEAR
[2025-01-21] MEDS: oxyCODONE 5 MG Tab PO PRN (09:45)
[2025-01-21] MEDS: Pantoprazole 40 MG Tab.CR PO SCH (09:45)
[2025-01-21] MEDS: Sodium Chloride 0.9% 250 ML IV SCH (12:17)
[2025-01-21 14:08] LABS: FERRITIN 33 ng/ml (8-252); IRON,FE 15 ug/dL (50-170); PERCENT FE SATURATION 5 % (20-55); TRANSFERRIN 261 mg/dL (202-364)
[2025-01-21 14:13] LABS: TOTAL IRON BINDING CAPACITY 326 ug/dL (100-400)
[2025-01-21 15:41] LABS: APPEARANCE,URINE SLT CLOUDY (Clear); BILIRUBIN,URINE NEGATIVE (Negative); COLOR,URINE DARK YELLOW (Yellow); GLUCOSE,URINE NEGATIVE (Negative); KETONES,URINE TRACE (Negative); LEUKOCYTE ESTERASE,URINE 2+ (Negative); NITRITE,URINE NEGATIVE (Negative); OCCULT BLOOD,URINE 3+ (Negative); PROTEIN,URINE 2+ (Negative); UROBILINOGEN,URINE 0.2 (0.2-1.0)
[2025-01-21 16:02] LABS: EPITHELIAL CELLS,URINE 0-5 /hpf (0-5); RBC,URINE 20-30 /hpf (0-5); WBC,URINE >100 /hpf (0-5)
[2025-01-21 16:03] LABS: BACTERIA,URINE MANY /hpf (FEW); MUCUS,URINE FEW /hpf (FEW)
[2025-01-21 16:35] LABS: HEMATOCRIT 27.1 % (37.0-47.0); HEMOGLOBIN 8.2 gm/dl (12.0-16.0)
[2025-01-21] MEDS: cefTRIAXone 1 GM Vial IVPUSH SCH (17:01)
[2025-01-21] MEDS: Sodium Chloride 0.9% 1,000 ML IV SCH (17:02)
[2025-01-21] MEDS: Sertraline 50 MG Tab PO SCH (21:33)
[2025-01-21] MEDS: Amiodarone 200 MG Tab PO SCH (21:33)
[2025-01-21] MEDS: atorvaSTATin 20 MG Tab PO SCH (21:34)
[2025-01-22] MEDS: Acetaminophen 325 MG Tab PO PRN (05:42)
[2025-01-22 05:51] LABS: BASOPHILS PERCENT AUTO 0.2 % (0.0-1.0); EOSINOPHILS PERCENT AUTO 0.1 % (0.0-6.0); HEMATOCRIT 26.9 % (37.0-47.0); HEMOGLOBIN 8.3 gm/dl (12.0-16.0); IMMATURE GRAN ABSOLUTE AUTO 0.13 K/mm3 (0.00-0.05); IMMATURE GRAN PERCENT AUTO 0.7 % (0.0-0.4); LYMPHOCYTES ABSOLUTE AUTO 1.7 K/mm3 (1.0-4.8); LYMPHOCYTES PERCENT AUTO 9.7 % (24.0-44.0); MEAN CORPUSCULAR HEMOGLOBIN 22.3 pg (28.0-32.0); MEAN CORPUSCULAR HGB CONC 30.9 g/dl (32.0-36.0); MEAN CORPUSCULAR VOLUME 72.3 fl (83.0-99.0); MEAN PLATELET VOLUME 11.4 fl (9.4-12.3); MONOCYTES ABSOLUTE AUTO 1.5 K/mm3 (0.0-0.8); MONOCYTES PERCENT AUTO 8.4 % (0.0-8.0); NEUTROPHILS ABSOLUTE AUTO 14.1 K/mm3 (1.8-7.7); NEUTROPHILS PERCENT AUTO 80.9 % (41.0-71.0); PLATELET COUNT,PLT 193 K/mm3 (150-400); RED BLOOD CELL COUNT 3.72 M/mm3 (4.10-5.30); WHITE BLOOD CELL COUNT,WBC 17.39 K/mm3 (3.9-11.3)
[2025-01-22 06:01] LABS: BUN/CREATININE RATIO 14.5 (14-18); CALCIUM 9.1 mg/dL (8.5-10.1); CREATININE 1.1 mg/dL (0.55-1.02); EST CRCL DRUG DOSING (CG) 32.87 mL/min
[2025-01-22] MEDS: Cholecalciferol (Vitamin D3) 25 MCG Tab PO SCH (09:03)
[2025-01-23 05:35] LABS: ANION GAP 12.9 (5-15); CALCIUM 8.9 mg/dL (8.5-10.1); EST CRCL DRUG DOSING (CG) 36.16 mL/min; POTASSIUM,K 3.9 mEq/L (3.5-5.1)
[2025-01-23 05:51] LABS: BASOPHILS PERCENT AUTO 0.2 % (0.0-1.0); EOSINOPHILS ABSOLUTE AUTO 0.1 K/mm3 (0.0-0.4); EOSINOPHILS PERCENT AUTO 0.6 % (0.0-6.0); HEMATOCRIT 26.3 % (37.0-47.0); HEMOGLOBIN 8.1 gm/dl (12.0-16.0); IMMATURE GRAN ABSOLUTE AUTO 0.17 K/mm3 (0.00-0.05); IMMATURE GRAN PERCENT AUTO 1.1 % (0.0-0.4); LYMPHOCYTES ABSOLUTE AUTO 2.3 K/mm3 (1.0-4.8); LYMPHOCYTES PERCENT AUTO 14.8 % (24.0-44.0); MEAN CORPUSCULAR HEMOGLOBIN 22.2 pg (28.0-32.0); MEAN CORPUSCULAR HGB CONC 30.8 g/dl (32.0-36.0); MEAN CORPUSCULAR VOLUME 72.1 fl (83.0-99.0); MEAN PLATELET VOLUME 11.3 fl (9.4-12.3); MONOCYTES ABSOLUTE AUTO 1.4 K/mm3 (0.0-0.8); MONOCYTES PERCENT AUTO 9.2 % (0.0-8.0); NEUTROPHILS ABSOLUTE AUTO 11.5 K/mm3 (1.8-7.7); NEUTROPHILS PERCENT AUTO 74.1 % (41.0-71.0); PLATELET COUNT,PLT 193 K/mm3 (150-400); RED BLOOD CELL COUNT 3.65 M/mm3 (4.10-5.30); WHITE BLOOD CELL COUNT,WBC 15.44 K/mm3 (3.9-11.3)
[2025-01-23 06:22] LABS: SLIDE REVIEW ABNORMAL SMEAR
[2025-01-23] MEDS: Acetaminophen/HYDROcodone 325-5 MG Tab PO ONE (11:37)
[2025-01-23] MEDS: Polyethylene Glycol 3350 Powder 17 GM Packet PO SCH (11:37)
[2025-01-23] MEDS: Sennosides/Docusate Sodium 50-8.6 MG Tab PO SCH (11:37)
[2025-01-23] MEDS: Ferrous Sulfate 324 MG Tab.EC PO SCH (13:09)
[2025-01-23] MEDS: MEMANTINE 28 MG PO SCH (20:20)
[2025-01-24 04:56] LABS: BASOPHILS PERCENT AUTO 0.3 % (0.0-1.0); EOSINOPHILS ABSOLUTE AUTO 0.1 K/mm3 (0.0-0.4); HEMATOCRIT 24.9 % (37.0-47.0); HEMOGLOBIN 7.7 gm/dl (12.0-16.0); IMMATURE GRAN ABSOLUTE AUTO 0.18 K/mm3 (0.00-0.05); IMMATURE GRAN PERCENT AUTO 1.4 % (0.0-0.4); LYMPHOCYTES ABSOLUTE AUTO 2.3 K/mm3 (1.0-4.8); LYMPHOCYTES PERCENT AUTO 16.9 % (24.0-44.0); MEAN CORPUSCULAR HEMOGLOBIN 22.3 pg (28.0-32.0); MEAN CORPUSCULAR HGB CONC 30.9 g/dl (32.0-36.0); MEAN PLATELET VOLUME 11.1 fl (9.4-12.3); MONOCYTES ABSOLUTE AUTO 1.2 K/mm3 (0.0-0.8); MONOCYTES PERCENT AUTO 9.2 % (0.0-8.0); NEUTROPHILS ABSOLUTE AUTO 9.5 K/mm3 (1.8-7.7); NEUTROPHILS PERCENT AUTO 71.2 % (41.0-71.0); PLATELET COUNT,PLT 205 K/mm3 (150-400); RED BLOOD CELL COUNT 3.46 M/mm3 (4.10-5.30)
[2025-01-24 05:19] LABS: A/G RATIO 0.6 (1-2); ALBUMIN 2.1 g/dl (3.4-5.0); ANION GAP 10.8 (5-15); BILIRUBIN TOTAL 0.7 mg/dL (0.2-1.0); C-REACTIVE PROTEIN 13.18 mg/dL (<0.30); CALCIUM 8.3 mg/dL (8.5-10.1); EST CRCL DRUG DOSING (CG) 36.16 mL/min; POTASSIUM,K 3.8 mEq/L (3.5-5.1); PROTEIN TOTAL,TP 5.5 g/dl (6.4-8.2)
[2025-01-24] MEDS: amLODIPine 5 MG Tab PO SCH (09:16)
[2025-01-24] MEDS ORDERED: Sodium Chloride 0.9% 250 ML IV SCH (15:15)
[2025-01-24] MEDS: Acetaminophen/HYDROcodone 325-5 MG Tab PO PRN (20:25)
[2025-01-25 04:49] LABS: BASOPHILS PERCENT AUTO 0.4 % (0.0-1.0); EOSINOPHILS ABSOLUTE AUTO 0.2 K/mm3 (0.0-0.4); EOSINOPHILS PERCENT AUTO 1.4 % (0.0-6.0); HEMATOCRIT 24.9 % (37.0-47.0); HEMOGLOBIN 7.6 gm/dl (12.0-16.0); IMMATURE GRAN ABSOLUTE AUTO 0.13 K/mm3 (0.00-0.05); IMMATURE GRAN PERCENT AUTO 1.2 % (0.0-0.4); LYMPHOCYTES ABSOLUTE AUTO 1.7 K/mm3 (1.0-4.8); LYMPHOCYTES PERCENT AUTO 15.1 % (24.0-44.0); MEAN CORPUSCULAR HGB CONC 30.5 g/dl (32.0-36.0); MEAN CORPUSCULAR VOLUME 72.2 fl (83.0-99.0); MEAN PLATELET VOLUME 11.1 fl (9.4-12.3); MONOCYTES ABSOLUTE AUTO 1.2 K/mm3 (0.0-0.8); MONOCYTES PERCENT AUTO 10.8 % (0.0-8.0); NEUTROPHILS ABSOLUTE AUTO 7.9 K/mm3 (1.8-7.7); NEUTROPHILS PERCENT AUTO 71.1 % (41.0-71.0); PLATELET COUNT,PLT 221 K/mm3 (150-400); RED BLOOD CELL COUNT 3.45 M/mm3 (4.10-5.30); WHITE BLOOD CELL COUNT,WBC 11.08 K/mm3 (3.9-11.3)
[2025-01-25 05:28] LABS: A/G RATIO 0.6 (1-2); ALBUMIN 2.1 g/dl (3.4-5.0); BILIRUBIN TOTAL 0.9 mg/dL (0.2-1.0); C-REACTIVE PROTEIN 9.07 mg/dL (<0.30); CALCIUM 8.8 mg/dL (8.5-10.1); EST CRCL DRUG DOSING (CG) 36.16 mL/min; PROTEIN TOTAL,TP 5.6 g/dl (6.4-8.2)
[2025-01-25 06:23] LABS: SLIDE REVIEW ABNORMAL SMEAR
[2025-01-25] MEDS: Sodium Chloride 0.9% 100 ML IV SCH (11:54)
[2025-01-25] MEDS: Sodium Ferric Gluconate Cmplex 125 MG in Sodium Chloride 0.9% 100 ML IV ONE (11:54)
[2025-01-26 08:06] LABS: HEMATOCRIT 27.8 % (37.0-47.0); HEMOGLOBIN 8.5 gm/dl (12.0-16.0)
[2025-01-26 11:41] VITALS: BP 151/51; PULSE 68
== END 2025-01-26 11:48 | DRG 536 ==
LOC: JD.ED 18:57 → JD.MS 21:12
PROVIDERS: ADMIT Family Medicine; ATTEND Student in an Organized Health Care Education/Training Program
PROC: 30233N1 Transfusion of Nonautologous Red Blood Cells into Peripheral Vein, Percutaneous Approach (ICD-10-PCS; principal; 2025-01-21)
DX: S72.141A Displaced intertrochanteric fracture of right femur, initial encounter for closed fracture (principal); M97.01XA Periprosthetic fracture around internal prosthetic right hip joint, initial encounter; K92.2 Gastrointestinal hemorrhage, unspecified; E70.0 Classical phenylketonuria; N17.9 Acute kidney failure, unspecified; N30.01 Acute cystitis with hematuria; H54.7 Unspecified visual loss; Z88.2 Allergy status to sulfonamides; E78.00 Pure hypercholesterolemia, unspecified; I10 Essential (primary) hypertension; M81.0 Age-related osteoporosis without current pathological fracture; M19.90 Unspecified osteoarthritis, unspecified site; Z96.651 Presence of right artificial knee joint; F03.90 Unspecified dementia, unspecified severity, without behavioral disturbance, psychotic disturbance, mood disturbance, and anxiety; Y92.009 Unspecified place in unspecified non-institutional (private) residence as the place of occurrence of the external cause; K21.9 Gastro-esophageal reflux disease without esophagitis; Z66 Do not resuscitate; E86.0 Dehydration; D64.9 Anemia, unspecified; I48.0 Paroxysmal atrial fibrillation; W19.XXXA Unspecified fall, initial encounter; Z88.8 Allergy status to other drugs, medicaments and biological substances; Z88.1 Allergy status to other antibiotic agents; Z91.041 Radiographic dye allergy status; Z91.013 Allergy to seafood; Z79.899 Other long term (current) drug therapy; Z79.01 Long term (current) use of anticoagulants; Z95.5 Presence of coronary angioplasty implant and graft; Z86.16 Personal history of COVID-19; Z90.49 Acquired absence of other specified parts of digestive tract; Z98.890 Other specified postprocedural states; Z90.710 Acquired absence of both cervix and uterus; Z90.89 Acquired absence of other organs; Z98.49 Cataract extraction status, unspecified eye
CPT/HCPCS: 36415; 36430; 72170; 72170-26; 73552-26-RT; 73552-RT; 80048; 80053; 81001; 82272; 82728; 83540; 83605; 83735; 84466; 85014; 85018; 85025; 85610; 85730; 86140; 86850; 86900; 86901; 86922; 87086; 87088; 87186; 97110-GP; 97112-GP; 97161-GP; 97166-GO; 97530-GO; 97530-GP; 97535-GO; 99284; 99285; A9270-GY; J0696; J2916; J7030; P9016; U0002